=== PATIENT | male | born 1980 | race Caucasian/White ===

== ENCOUNTER → 2016-12-01 | Outpatient (CLI) | payer OTHER ==
[~2016-12-01] MED LIST: INSDGI SC; NVLGI
== END | disposition home or self-care (01) ==
LOC: C.LAB 19:36
DX: Z02.83 Encounter for blood-alcohol and blood-drug test (principal)

== ENCOUNTER 2019-10-06 14:34 | Observation (INO) ==
[2019-10-06] MEDS ORDERED: ONDANSETRON INJ 2 MG/ML 2 ML VIAL IV STA (14:56)
[2019-10-06] MEDS ORDERED: HYDROmorphone INJ 0.5 MG/0.5 ML SYR IV STA (14:56)
[2019-10-06] MEDS ORDERED: SODIUM CHLORIDE 0.9% 500 ML IV SCH (15:00)
[2019-10-06 15:11] LABS: Basophils # (auto) 0.05 K/uL (0-0.2); Basophils % (auto) 0.7 %; Eosinophils # (auto) 0.25 K/uL (0-0.5); Eosinophils % (auto) 3.3 %; Hematocrit (blood only) 38.8 % (42-52); Hemoglobin 14.2 g/dL (14.0-18.0); Immature Granulocytes # (auto) 0.01 K/uL (0.00-0.02); Immature Granulocytes % (auto) 0.1 %; Lymphocytes # (auto) 1.73 K/uL (1.2-3.4); Lymphocytes % (auto) 22.7 %; Mean Corpuscular Hemoglobin 33.8 pg (25-34); Mean Corpuscular Hgb Conc 36.6 g/dL (32-36); Mean Corpuscular Volume 92.4 fL (80-100); Mean Platelet Volume 8.8 fL (7.4-10.4); Monocytes # (auto) 0.58 K/uL (0.11-0.59); Monocytes % (auto) 7.6 %; Neutrophils # (auto) 5.01 K/uL (1.4-6.5); Neutrophils % (auto) 65.6 %; Platelet Count 327 K/uL (130-400); RDW Coefficient of Variation 12.1 % (11.5-14.5); RDW Standard Deviation 41.1 fL (36.4-46.3); White Blood Count 7.63 K/uL (4.8-10.8)
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
[2019-10-06 15:24] LABS: iSTAT Creatinine 1.2 mg/dl (0.6-1.3); iSTAT Hemoglobin 14.6 g/dl (14.0-18.0); iSTAT Ionized Calcium 1.22 mmol/l (1.12-1.32); iSTAT Potassium 4.1 mmol/L (3.3-5.0)
[2019-10-06 15:29] LABS: Albumin Level 3.7 gm/dl (3.4-5.0); BUN Creatinine Ratio 6.3 (10-20); Calcium 9.2 mg/dl (8.5-10.1); Creatinine Clr Calc Pharmacy 94.5 ml/min; Est GFR (African American) 121.9; Est GFR (Non-African American) 105.1
[2019-10-06 15:32] LABS: Albumin Globulin Ratio 1.1 (0.9-2); Bilirubin,Total 0.5 mg/dl (0.2-1); Globulin 3.3 gm/dl (2.5-4.0)
[2019-10-06] MEDS ORDERED: IOVERSOL 100ml IV PRN (15:41)
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
--- NOTE | 2019-10-06 19:33 | XRay Report ---
XR chest 2V PA/lateral CLINICAL HISTORY: Assess pneumothorax COMPARISON STUDY: Chest radiograph and chest CT performed earlier today. FINDINGS: A small left apical pneumothorax is noted. Superior pleural separation is difficult to visu sony on this exam but measures approximately 1.6 cm. This is similar to CT performed earlier today. The known left seventh rib fracture is better depicted on that examination. Cardiac size is normal. M ediastinal contours are normal. There is no evidence for pulmonary edema. IMPRESSION: Small left apical pneumothorax, similar to CT performed earlier today. ACT 112: Negative or not required by law. Electronically signed by: Mendoza Barton M.D. 10/06/2019 7:32 PM
[2019-10-06] MEDS ORDERED: GLUCAGON FOR INJ 1 MG VIAL SQ PRN (19:37)
[2019-10-06] MEDS ORDERED: CARBOHYDRATES FOR HYPOGLYCEMIA PO PRN (19:37)
[2019-10-06] MEDS ORDERED: GLUCOSE 10 TABS/TUBE PO PRN (19:37)
[2019-10-06] MEDS ORDERED: ACETAMINOPHEN 325 MG TAB PO PRN (19:37)
[2019-10-06] MEDS ORDERED: ONDANSETRON INJ 2 MG/ML 2 ML VIAL IV PRN (19:37)
[2019-10-06] MEDS ORDERED: GLUCOSE 40% GEL 15 GM TUBE PO PRN (19:37)
[2019-10-06] MEDS ORDERED: HYDROmorphone INJ 0.5 MG/0.5 ML SYR IV PRN (19:37)
[2019-10-06] MEDS ORDERED: DEXTROSE 50% 50 ML SYRINGE IV PRN (19:37)
[2019-10-06] MEDS: DORZOLAMIDE/TIMOLOL 22.3/6.8MG/ML 10 ML BTL OPR SCH (20:48)
[2019-10-06] MEDS: INSULIN ASPART 100 UNITS/ML 3 ML PEN SC SCH (20:48)
[2019-10-06] MEDS ORDERED: INSULIN GLARGINE SOLOSTAR 100 UNITS/ML 3 ML PEN SC SCH (21:00)
[2019-10-06] MEDS: MoRPHine SULFATE 4 MG/ML 1 ML CARP\\VIAL IV PRN (21:08)
[2019-10-06 21:13] LABS: Appearance Urine Clear (Clear); Bacteria Urine Automated Negative (Negative); Bilirubin Urine Negative (Negative); Blood Urine Trace (Negative); Cast Urine Automated 0 /lpf (0-5); Color Urine Yellow; Epithelial Cell Urine Auto 0-5 /lpf (0-5); Glucose Urine UA 1+ (Negative); Ketones Urine Negative (Negative); Leukocyte Esterase Urine Negative (Negative); Nitrite Urine Negative (Negative); Protein Urine Negative (Negative); RBC Urine Automated 0-4 /hpf (0-4); Specific Gravity Urine 1.026 (1.000-1.030); Urobilinogen Urine Negative (Negative); WBC Urine Automated 0 /hpf (0-5); pH Urine 8.5 (4.5-7.5)
[2019-10-07] MEDS: MoRPHine SULFATE 4 MG/ML 1 ML CARP\\VIAL IV PRN ×3 (00:20→10:12)
[2019-10-07] MEDS: DORZOLAMIDE/TIMOLOL 22.3/6.8MG/ML 10 ML BTL OPR SCH ×3 (07:54→12:13)
--- NOTE | 2019-10-07 08:14 | Electrocardiogram Report ---
Test Reason : Blood Pressure : / mmHG Vent. Rate : 083 BPM Atrial Rate : 083 BPM P-R Int : 188 ms QRS Dur : 082 ms QT Int : 368 ms P-R-T Axes : 063 006 062 degrees QTc Int : 432 ms Normal sinus rhythm Low voltage QRS Borderline ECG When compared with ECG of 14-DEC-2004 11:13, Questionable change in QRS axis Confirmed by Mick Leslie ([id number]) on 10/07/2019 8:13:59 AM Referred By: REFERRED SELF Confirmed By:Mick Leslie
[2019-10-07] MEDS: INSULIN ASPART 100 UNITS/ML 3 ML PEN SC SCH ×2 (08:22→12:11)
[2019-10-07 08:32] LABS: Albumin Level 3.2 gm/dl (3.4-5.0); BUN Creatinine Ratio 9.9 (10-20); Bilirubin,Total 0.9 mg/dl (0.2-1); Calcium 8.6 mg/dl (8.5-10.1); Est GFR (African American) 120.3; Est GFR (Non-African American) 103.8; Globulin 3.1 gm/dl (2.5-4.0); Potassium 4.1 mmol/L (3.5-5.1); Total Protein 6.3 gm/dl (6.4-8.2)
[2019-10-07] MEDS ORDERED: ESCITALOPRAM OXALATE 10 MG TAB PO SCH (09:00)
[2019-10-07] MEDS ORDERED: INSULIN GLARGINE SOLOSTAR 100 UNITS/ML 3 ML PEN SC SCH (09:00)
--- NOTE | 2019-10-07 10:58 | XRay Report ---
XR chest 2V PA/lateral HISTORY: Left pneumothorax. Follow-up. COMPARISON: Chest 10/06/2019. FINDINGS: There is again noted a small left apical pneumothorax demonstrating a maximal pleural gap o f 12 mm. This has slightly improved in the interval. No right-sided pneumothorax. No new focal lung c onsolidations to suggest pneumonia. No evidence for pulmonary edema. The heart is normal in size. No pleural effusions. A few linear scarlike densities within the right lung base persist. IMPRESSION: Slight improvement in the small left pneumothorax. ACT 112: Negative or not required by law. Electronically signed by: Gregory Torres M.D. 10/07/2019 10:57 AM
--- NOTE | 2019-10-07 12:00 | Pulmonology Progress Note ---
Date of Service October 07, 2019 Assessment & Plan (1) Pneumothorax on left: Impression: 39-year-old male status post traumatic pneumothorax. It is very small and not visible on chest x-ray and very small on the CT scan. He does have an extensive history of tobacco and marijuana abuse, but no obvious structural lung disease on the CT scan. Recommendations: 1. Traumatic pneumothorax: He continues to have a small residual apical pneumothorax. I think he is okay to be discharged at this point, but he will need a repeat chest x-ray in 2 to 3 days as an outpatient with follow-up in the pulmonary clinic. I strongly encouraged him to consider tobacco smoking cessation and marijuana smoking cessation. There is an increased risk of pneumothorax in particular with people who smoke marijuana. 2. Acute rib fracture: Pain management per primary service. Consider lidocaine patches, Toradol, and if this is ineffectual, potential anesthesia consultation for subcostal rib block. 3. Aggressive pulmonary toilet including some incentive spirometry and out of bed and ambulatory as tolerated to prevent atelectasis and pneumonia. (2) Smokes 1 pack of cigarettes per day: (3) Marijuana abuse: Admission and Anticipated Discharge Date Admission Date: October 06, 2019 Subjective Patient is laying in his bed. He has a nonrebreather in place. He denies any significant complaints. No chest pain. Recently underwent a chest x-ray which showing small residual pneumothorax on the left. Review of Systems Review of Systems: All systems reviewed & are unremarkable except as noted in HPI & below Physical Exam Constitutional: WD/WN, vitals as above Neck: trachea midline, no thyromegaly Respiratory: normal respiratory effort, lungs clear to auscultation Cardiovascular: RRR, no murmur, no edema Gastrointestinal (Abdomen): normal bowel sounds, soft, nontender, no hepatosplenomegaly Musculoskeletal: Extremities: extremities normal to inspection Skin: no rashes, warm and dry Neurologic: Nonfocal exam Lymphatic: no cervical lymphadenopathy Results & Data Results & Data ([facility]) Vital Signs (Past 12 Hours) Vital Signs Temp Pulse Pulse Resp BP Pulse Ox 10/07/19 11:51 54 L 18 138/85 100 10/07/19 08:00 97.2 F L 57 L 18 144/88 H 100 10/07/19 07:19 57 L 10/07/19 04:00 98.2 F 61 20 130/80 100 10/07/19 00:55 67 I personally reviewed his chest imaging, labs and vital signs. PG Care Time/CCT Total # of Minutes Spent Total Time Spent with Patient: Total time spent is greater than 50% in coordination of care (as documented) at patient's floor/unit and/or counseling patient: Coding Level of Care Code 13925 Subseq Hosp Care Lvl 3 Diagnoses Pneumothorax on left J93.9 Smokes 1 pack of cigarettes per day F17.210 Marijuana abuse F12.10
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
--- NOTE | 2019-10-07 13:40 | Surgery Progress Note ---
Date of Service October 07, 2019 Assessment & Plan (1) Pneumothorax, acute: CXR shows improvement. Stable for discharge from surgical standpoint. Would limit heavy lifting to under 20 lbs for at least 3 weeks given rib fracture. Subjective Feels well. No shortness of breath. Review of Systems Review of Systems: All systems reviewed & are unremarkable except as noted in HPI & below Physical Exam Constitutional: WD/WN, vitals as above Respiratory: normal respiratory effort; no respiratory distress Auscultation: lungs clear to auscultation bilaterally Neurologic: moves all extremities; no focal motor deficits Psychiatric: Orientation: oriented x 3 Results & Data Vital Signs (Past 12 Hours) Vital Signs Temp Pulse Pulse Resp BP Pulse Ox 10/07/19 13:26 36.2 C L 54 L 18 138/85 98 10/07/19 13:25 98 10/07/19 11:51 54 L 18 138/85 100 10/07/19 08:00 36.2 C L 57 L 18 144/88 H 100 10/07/19 07:19 57 L 10/07/19 04:00 36.8 C 61 20 130/80 100 Diagnostic Findings CXR this morning shows improvement is small pneumothorax
[2019-10-08 09:16] LABS: Estimated Average Glucose 200 mg/dl; Hemoglobin A1C 8.6 % (4.5-5.6)
== END 2019-10-07 14:29 | disposition home or self-care (01) | DRG 200 ==
LOC: ED 14:34 → 2N 17:16 → INTOOBSV 17:16 → SUATTDRO 17:16 → 2N 18:49